=== PATIENT | female | born 1970 | race Caucasian/White ===

== ENCOUNTER → 2024-06-04 | Outpatient (REF) | payer OTHER ==
[2024-06-04 12:47] LABS: HEMATOCRIT 44.3 % (36.0-47.0); HEMOGLOBIN 14.6 g/dl (12.0-15.5); MEAN CORPUSCULAR HEMOGLOBIN 30.4 pg (27.0-33.0); MEAN CORPUSCULAR VOLUME 92.1 fl (80.0-96.0); PLATELET COUNT, AUTOMATED 373 10^3/uL (150-450); RED BLOOD COUNT 4.81 10^6/uL (4.00-5.40); WHITE BLOOD COUNT 11.2 10^3/uL (4.0-10.0)
[2024-06-04 12:59] LABS: THYROID STIMULATING HORMONE 1.252 uIU/ML (0.55-4.78)
[2024-06-04 13:01] LABS: ALBUMIN 4.2 G/DL (3.2-5.2); ALKALINE PHOSPHATASE 100 U/L (35-104); ALT/SGPT 26 U/L (7.0-40); AST/SGOT 25 U/L (<34); BILIRUBIN,TOTAL 0.4 MG/DL (0.3-1.2); BLOOD UREA NITROGEN 19 MG/DL (9-23); CALCIUM LEVEL 9.7 MG/DL (8.5-10.1); CARBON DIOXIDE LEVEL 29 MMOL/L (20-31); CHLORIDE LEVEL 107 MMOL/L (98-107); CHOLESTEROL LEVEL 231 MG/DL (<200); CHOLESTEROL RISK RATIO 3.51 (<5); CREATININE FOR GFR 0.72 MG/DL (0.55-1.30); GLOMERULAR FILTRATION RATE > 60.0 (>51); GLUCOSE, FASTING 92 MG/DL (60-100); HDL CHOLESTEROL 65.7 MG/DL (>40); LDL CHOLESTEROL 140.9 MG/DL (<100); NON-HDL-C 165.3 MG/DL; POTASSIUM SERUM 4.7 MMOL/L (3.5-5.1); SODIUM LEVEL 143 MMOL/L (136-145); TOTAL PROTEIN 7.2 G/DL (5.7-8.2); TRIGLYCERIDES LEVEL 122 MG/DL (<150)
[2024-06-04 13:09] LABS: HEMOGLOBIN A1c 5.3 % (4.0-6.0)
== END ==
LOC: M LAB REF 12:13
PROVIDERS: ATTEND Student in an Organized Health Care Education/Training Program
DX: Z00.01 Encounter for general adult medical examination with abnormal findings (principal)

== ENCOUNTER 2024-07-09 11:19 | Day surgery (SDC) | payer OTHER ==
[~2024-07-09] VITALS: Ht 154.9 cm; Wt 55.3 kg
[2024-07-09] MEDS ORDERED: AMLO1TAB25 PO (12:42)
[2024-07-09] MEDS ORDERED: ATOR1TAB21 PO (12:42)
[2024-07-09] MEDS ORDERED: LOSA25TA13 PO (12:42)
[2024-07-09] MEDS ORDERED: SODIUM BICARBONATE 8.4% INJ 50MEQ 50ML VIAL XX ONE (13:40)
[2024-07-09] MEDS ORDERED: LIDOCAINE W/EPINEPHRINE 1% 20ML VIAL XX ONE (13:40)
[2024-07-09] MEDS: BACITRACIN OINTMENT 30GM TUBE As Ordered ONE (15:03)
[2024-07-09 15:10] VITALS: BP 138/89; TEMP 98.6; O2SAT 95
== END 2024-07-09 15:28 | disposition home or self-care (01) ==
LOC: M SDC 11:19
PROVIDERS: ATTEND Orthopaedic Surgery Hand Surgery
DX: M65.331 Trigger finger, right middle finger (principal); M65.311 Trigger thumb, right thumb

== ENCOUNTER → 2024-07-09 | Outpatient (CLI) | payer OTHER ==
[~2024-07-09] MED LIST: AMLO1TAB25 PO; ATOR1TAB21 PO; LOSA25TA13 PO
== END ==
LOC: M RAD 08:33
PROVIDERS: ATTEND Student in an Organized Health Care Education/Training Program
DX: Z87.891 Personal history of nicotine dependence (principal)

== ENCOUNTER → 2024-09-07 | Outpatient (REF) | payer OTHER ==
[2024-09-07 14:15] LABS: CHOLESTEROL LEVEL 152.0 MG/DL (<200); CHOLESTEROL RISK RATIO 2.08 (<5); LDL CHOLESTEROL 48.4 MG/DL (<100); NON-HDL-C 79.0 MG/DL; TRIGLYCERIDES LEVEL 153.0 MG/DL (<150)
== END ==
LOC: M LAB REF 11:45
PROVIDERS: ATTEND Student in an Organized Health Care Education/Training Program
DX: E78.5 Hyperlipidemia, unspecified (principal)